=== PATIENT | male | born 1995 | race Caucasian/White ===

== ENCOUNTER 2018-05-08 14:51 | Emergency (ER) | payer BC ==
[2018-05-08 15:21] VITALS: BP 138/65
--- NOTE | 2018-05-08 15:49 | RAD ---
Indication: RIGHT ankle pain following rolling/inversion injury. Comparison: No relevant prior exams available on the [facility] [place] [facility] for comparison. Technique: AP, mortise, and lateral views RIGHT ankle. Report: Grossly nondisplaced oblique coronal fracture of the distal fibula terminating inferiorly at the level of the ankle mortise. Negative for additional fracture or articular malalignment. Talocrural joint effusion. Soft tissue swelling most prominent over the anterolateral aspect. IMPRESSION: #. Grossly nondisplaced Kitchen type B lateral malleolus fracture.
--- NOTE | 2018-05-08 15:58 | UC ---
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, when he heard a pop and immediately afterward had pain - History of Current Complaint Chief Complaint: UCLowerExtremity Stated Complaint: RT ANKLE INJURY Time Seen by Provider: 05/08/18 15:23 Hx Obtained From: Patient Onset/Duration: Sudden Onset, Lasting Minutes Severity Initially: Severe Severity Currently: Severe Pain Intensity: 7 Aggravating Factor(s): Standing Alleviating Factor(s): Rest, Elevation Able to Bear Weight: No - Risk Factors Gout Risk Factors: Negative DVT Risk Factors: Negative Septic Arthritis Risk Factor: Negative - Allergies/Home Medications Allergies/Adverse Reactions: Allergies Allergy/AdvReac Type Severity Reaction Status Date / Time No Known Allergies Allergy Verified 05/08/18 15:21 Home Medications: Home Medications Ibuprofen TAB* [Motrin TAB* 600 MG] 600 mg PO Q6H PRN 05/08/18 [History Confirmed 05/08/18] PMH/Surg Hx/FS Hx/Imm Hx Previously Healthy: Yes - Surgical History Surgical History: Yes Surgery Procedure, Year, and Place: Right kidney embolization 2014 - Social History Alcohol Use: Weekly Substance Use Type: None Smoking Status (MU): Never Smoked Tobacco Review of Systems Constitutional: Negative Skin: Negative Eyes: Negative ENT: Negative Respiratory: Negative Cardiovascular: Negative Gastrointestinal: Negative Genitourinary: Negative Motor: Negative Neurovascular: Negative Musculoskeletal: Negative Neurological: Negative Psychological: Negative Is Patient Immunocompromised?: No All Other Systems Reviewed And Are Negative: Yes Physical Exam Triage Information Reviewed: Yes Appearance: Pain Distress Vital Signs: Initial Vital Signs Temp 36.7 C 05/08/18 15:16 Pulse 94 05/08/18 15:16 Resp 16 05/08/18 15:16 BP 138/65 05/08/18 15:16 Pulse Ox 97 05/08/18 15:16 Vital Signs Reviewed: Yes Eye Exam: Normal ENT Exam: Normal Musculoskeletal Exam: Other - grossly swollen right ankle. pain laterally , restricted range of motion foot well perfused, sensation intact, pulses present Lower Extremity Course/Dx - Differential Dx/Diagnosis Provider Diagnoses: distal tibial fracture , nondisplaced right ankle Discharge - Sign-Out/Discharge Documenting (check all that apply): Patient Departure All imaging exams completed and their final reports reviewed: Yes - Discharge Plan Condition: Good Disposition: HOME Patient Education Materials: Ankle Fracture (DC) Referrals: No Primary Care Phys,NOPCP [Primary Care Provider] - - Billing Disposition and Condition Condition: GOOD Disposition: Home
== END 2018-05-08 16:06 | disposition home or self-care (01) ==
LOC: UCCORT 14:51
DX: S82.301A Unspecified fracture of lower end of right tibia, initial encounter for closed fracture (principal); W19.XXXA Unspecified fall, initial encounter; Y93.79 Activity, other specified sports and athletics; Y92.9 Unspecified place or not applicable
CPT/HCPCS: 99201; G0463